=== PATIENT | female | born 1995 | race American Indian/Alaskan Native ===

== ENCOUNTER 2017-07-21 14:35 | Emergency (ER) | payer SELFPAY ==
[2017-07-21 14:35] VITALS: BMI 18.2
[2017-07-21 15:11] VITALS: TEMP 98.1
--- NOTE | 2017-07-21 15:48 | C.PDOC ---
History Of Present Illness 22 year old female presents to the ED with complaints of left great toe pain and swelling to area status post injury three days ago. Patient notes pain is worse with weight bearing and denies any other symptoms. L 1 TOE INJURY 3 DAYS AGO. CO SWELLING TO AREA. WORSE W WT BEAR. NO OTHER SX EXAM NAD EXT L FOOT DIFFUSE TEND TOP L 1ST TOE. NO GROSS DEFORM. MILD LOCAL SWELL. NO SUBCONJ HEMORRHAGE. NAIL INTACT. AROM TOE W REPRODUC PAIN. SKIN INTACT NO ERYTHEMA REMAINDE RNEG Time Seen by Provider: 07/21/17 15:31 Chief Complaint (Nursing): Lower Extremity Problem/Injury History Per: Patient History/Exam Limitations: no limitations Onset/Duration Of Symptoms: Days (3 days ) Current Symptoms Are (Timing): Still Present Recent travel outside of the [place]: No Past Medical History Reviewed: Historical Data, Nursing Documentation, Vital Signs Vital Signs: Last Vital Signs Temp 98.1 F 07/21/17 15:11 Pulse 69 07/21/17 17:01 Resp 18 07/21/17 17:01 BP 119/69 07/21/17 17:01 Pulse Ox 98 07/21/17 17:01 Family History: States: Unknown Family Hx - Social History Hx Alcohol Use: No Hx Substance Use: No Review Of Systems Constitutional: Negative for: Fever Musculoskeletal: Positive for: Foot Pain (left great toe pain ) Neurological: Negative for: Weakness, Numbness Physical Exam - Physical Exam Appears: Non-toxic, No Acute Distress Skin: Warm, Dry, Other (no erythema ) Head: Atraumatic, Normacephalic Eye(s): bilateral: Normal Inspection Neck: Supple Chest: Symmetrical, No Deformity Cardiovascular: Rhythm Regular, No Murmur Extremity: Normal ROM (AROM of toe with reproducable pain. ), Tenderness (left foot diffuse tenderness top of first toe ), Capillary Refill (good capillary refill, less than two seconds ), No Deformity (no gross deformity ), Swelling ( mild local swelling to left great toe ), Other (No subungual hemorrhage. Nail of left great toe intact. ) Neurological/Psych: Oriented x3 Gait: Steady ED Course And Treatment O2 Sat by Pulse Oximetry: 100 (room air ) Pulse Ox Interpretation: Normal - Other Rad l 1 toe X-Ray: Interpreted by Me (neg) Progress Note: X-Ray of the left great toe was ordered. Disposition Counseled Patient/Family Regarding: Studies Performed, Diagnosis, Need For Followup - Disposition Referrals: [facility] [Outside] [facility] [Outside] [facility] [Outside] Disposition: HOME/ ROUTINE Disposition Time: 16:36 Condition: IMPROVED Instructions: Foot Contusion (ED) Forms: [facility] (Telugu), Work Excuse - Clinical Impression Clinical Impression: Toe contusion - Scribe Statement The provider has reviewed the documentation as recorded by the Scribe Olga Oropeza All medical record entries made by the Sherineibmateusz were at my direction and personally dictated by me. I have reviewed the chart and agree that the record accurately reflects my personal performance of the history, physical exam, medical decision making, and the department course for this patient. I have also personally directed, reviewed, and agree with the discharge instructions and disposition. Orthopedic Care Application Of:: Toe-michelle tape
[2017-07-21 17:02] VITALS: BP 119/69; PULSE 69; RESP 18
[2017-07-21 17:58] VITALS: O2SAT 100
--- NOTE | 2017-07-22 08:13 | RAD ---
PROCEDURE: Radiographs of the left great toe. TECHNIQUE:: AP radiograph of the left foot, with oblique and lateral view of the left great toe. COMPARISON: None. FINDINGS: BONES: A plantar 2 mm nondisplaced chip fracture is possible Directed physical exam with point tenderness here recommended JOINTS: Normal. SOFT TISSUES: Normal OTHER FINDINGS: None. IMPRESSION: Possible nondisplaced plantar chip fracture versus tiny sesamoid (elsewhere sesamoids just proximal to this site) - 1st distal phalanx.
== END 2017-07-21 17:03 | disposition home or self-care (01) ==
LOC: C.ER 14:35
DX: S90.112A Contusion of left great toe without damage to nail, initial encounter (principal); X58.XXXA Exposure to other specified factors, initial encounter; Y93.9 Activity, unspecified; Y92.9 Unspecified place or not applicable